=== PATIENT | male | born 1960 | race Caucasian/White ===

== ENCOUNTER 2024-05-05 07:39 | Day surgery (SDC) | payer MEDICARE, OTHER ==
[~2024-05-05] VITALS: Ht 188 cm; Wt 117.0 kg
[~2024-05-05 07:39] MED LIST: ATOR20 PO; NS 500 ML IV SCH
[2024-05-05 08:18] VITALS: BP 135/77
[2024-05-05] MEDS ORDERED: Midazolam HCl 1MG / ML 2ML Vial ONE (08:59)
[2024-05-05] MEDS ORDERED: FentaNYL Citrate 50 MCG/ML 2 ML Injection ONE (08:59)
[2024-05-05] MEDS ORDERED: propofoL 40 ML IV ONE (08:59)
--- NOTE | 2024-05-05 09:07 | NUR ---
05/05/24 0907 Brandon Vaz MONITOR INTACT WITH CONTINUOUS PULSE OXIMETRY, CONTINUOUS END TITAL CO2, AND INTERMITTENT BLOOD PRESSURE.AND EKG ANESTHESIA PER DR. MOULTON
[2024-05-05 09:38] VITALS: BP 135/88
--- NOTE | 2024-05-05 09:38 | NUR ---
PT TO DAY SURGERY STEP DOWN FROM COLONOSCOPY; BEDSIDE REPORT RECEIVED. PT IS SLEEPY. PT AT BEDSIDE.
[2024-05-05 09:48] VITALS: BP 143/88
--- NOTE | 2024-05-05 09:48 | NUR ---
PT STILL SLEEPY
[2024-05-05 09:59] VITALS: BP 133/80
--- NOTE | 2024-05-05 10:00 | NUR ---
PT AWAKE, ALERT AND ORIENTED. Discharge instructions reviewed with patient. Patient verbalizes understanding. Copy given to patient to take home. Patient States Post-Procedure ride home has been arranged.
--- NOTE | 2024-05-05 10:03 | NUR ---
PT DECLINES PO FLUIDS
--- NOTE | 2024-05-05 10:10 | NUR ---
Patient up to Ambulate independently. Gait steady. Discharged via wheelchair to private car for ride home.
== END 2024-05-05 10:11 | disposition home or self-care (01) ==
LOC: ORSCMMR 07:39 → ORD 08:30 → ORSCMMR 10:11
PROVIDERS: Internal Medicine Gastroenterology
PROC: 0DBK8ZX Excision of Ascending Colon, Via Natural or Artificial Opening Endoscopic, Diagnostic (ICD-10-PCS; principal; 2024-05-05 08:30)
PROC: 0DBN8ZX Excision of Sigmoid Colon, Via Natural or Artificial Opening Endoscopic, Diagnostic (ICD-10-PCS; principal; 2024-05-05 08:30)
PROC: 0DBL8ZX Excision of Transverse Colon, Via Natural or Artificial Opening Endoscopic, Diagnostic (ICD-10-PCS; principal; 2024-05-05 08:30)
PROC: 0DBH8ZX Excision of Cecum, Via Natural or Artificial Opening Endoscopic, Diagnostic (ICD-10-PCS; principal; 2024-05-05 08:30)
DX: Z12.11 Encounter for screening for malignant neoplasm of colon (principal); K63.89 Other specified diseases of intestine; D12.0 Benign neoplasm of cecum; K63.5 Polyp of colon; D12.3 Benign neoplasm of transverse colon; D12.5 Benign neoplasm of sigmoid colon; E78.00 Pure hypercholesterolemia, unspecified; G47.33 Obstructive sleep apnea (adult) (pediatric); G25.0 Essential tremor; Z79.899 Other long term (current) drug therapy
CPT/HCPCS: 88305; J2250; J2704; J3010; J7040